=== PATIENT | male | born 1935 | race Caucasian/White ===

== ENCOUNTER 2021-04-01 15:33 | Emergency (ER) | payer MEDICARE ==
[2021-04-01 19:06] LABS: HEMOGLOBIN 11.2 gm/dl (14.0-17.5); RED BLOOD COUNT 4.13 M/UL (4.20-5.50)
[2021-04-01 19:33] LABS: BUN/CREATININE RATIO 23 (0-10)
== END 2021-04-02 01:10 | disposition home or self-care (01) ==
LOC: ER1 15:33
PROVIDERS: Physician Assistant
DX: S20.221A Contusion of right back wall of thorax, initial encounter (principal); S20.211A Contusion of right front wall of thorax, initial encounter; I10 Essential (primary) hypertension; E11.9 Type 2 diabetes mellitus without complications; Z79.82 Long term (current) use of aspirin; Z79.899 Other long term (current) drug therapy; W19.XXXA Unspecified fall, initial encounter
CPT/HCPCS: 70450; 71250; 72125; 72128; 72131; 72170; 80053; 81001; 82550; 82553; 83874; 84484; 85025; 93005; 96374; 99284; J2060